=== PATIENT | female | born 1980 | race Two or more races ===

== ENCOUNTER 2016-08-09 14:15 | Emergency (ER) | payer MEDICAID ==
[2016-08-09 14:21] VITALS: BP 119/72; PULSE 83; RESP 16; TEMP 97.7; O2SAT 95
[2016-08-09] MEDS ORDERED: IBUPROFEN 600 MG TAB PO ONE (16:10)
[2016-08-09] MEDS ORDERED: METHOCARBAMOL 750 MG TAB PO ONE (16:10)
--- NOTE | 2016-08-09 16:12 | EDPHY ---
H & P Time Seen by Provider: 08/09/16 15:48 HPI/ROS: CHIEF COMPLAINT: Back pain HISTORY OF PRESENT ILLNESS: 36-year-old female presents emergency department complaining of middle low back pain that started after bending over to put something down on the floor in her house this morning. Patient states she went to stand up and felt her low back spasm. Patient denies fevers or chills, no trauma, no loss of control of her bowel or bladder, no saddle anesthesias. Patient reports she has had low back pain in the past where she has seen a chiropractor. She denies numbness or tingling down her legs, reports her pain is central. REVIEW OF SYSTEMS: A comprehensive 10 point review of systems is otherwise negative aside from elements mentioned in the history of present illness. Smoking Status: Never smoked Physical Exam: Physical Exam Gen: Alert and Oriented, NAD HEENT: PERRL, moist mucous membranes NECK: no meningismus CV: regular rate and regular rhythm PULM: CTAB, no wheezes ABDOMEN: soft, non tender to palpation, BS present BACK: No CVA tenderness, midline lumbar paraspinal tenderness to palpation worse on right NEURO: Neurologically grossly intact, 2/4 deep tendon reflexes patellar and Achilles, 5/5 strength, negative straight leg raise EXTREMITIES: normal appearing SKIN: no rash or break in skin on exposed skin PSYCH: answers questions appropriately. Constitutional: Initial Vital Signs Temperature (C) 36.5 C 08/09/16 14:18 Heart Rate 83 08/09/16 14:18 Respiratory Rate 16 08/09/16 14:18 Blood Pressure 119/72 08/09/16 14:18 O2 Sat (%) 95 08/09/16 14:18 O2 Delivery Mode Room Air Allergies/Adverse Reactions: No Known Allergies Allergy (Unverified 08/09/16 14:17) Home Medications: Medication Instructions Recorded Citalopram 08/09/16 Methocarbamol [Robaxin-750] 750 - 1,500 mg PO QID PRN #20 08/09/16 tablet MDM/Departure - MDM ED Course/Re-evaluation: 36-year-old female presents complaining of low back pain that started after bending over this morning at home. No signs or symptoms of cauda equina syndrome. Patient is given ibuprofen and Robaxin in the Emergency Department. She is given a prescription for Robaxin. She has been given strict return precautions for any neurovascular compromise and agrees to follow up with her primary care doctor for symptoms that are not improving. She is to return for worsening symptoms. Differential Diagnosis: The differential diagnosis for the patient's back pain included but was not limited to musculo-skeletal pain, epidural abscess, herniated disk, spinal fracture, cauda equina and intra-abdominal causes including urinary system. - Depart Disposition: Home, Routine, Self-Care Clinical Impression: Muscle spasm of back Condition: Good Instructions: Muscle Spasm (ED), Lower Back Exercises (ED) Additional Instructions: Rest, ice, take 600mg of ibuprofen every 8 hours with food for 3-5 days as needed for pain and swelling. Take Robaxin 750-1500 mg every 6 hours as needed for muscle spasms. Return to the emergency department for any numbness, tingling, discoloration of you limb or other concerns. Follow-up with your primary care doctor for symptoms that are not improving in the next 5-7 days. Prescriptions: Methocarbamol [Robaxin-750] 750 - 1,500 mg PO QID PRN #20 tablet PRN Reason: Spasms Referrals: Lydia Champion MD [Primary Care Provider] - As per Instructions
== END 2016-08-09 16:43 | disposition home or self-care (01) ==
DX: M62.830 Muscle spasm of back (principal)